=== PATIENT | female | born 1990 | race Caucasian/White ===

== ENCOUNTER 2017-11-13 11:26 | Emergency (ER) | payer OTHER ==
[~2017-11-13] VITALS: Ht 157.5 cm; Wt 54.4 kg
[2017-11-13 11:33] VITALS: Ht 157.5 cm; Wt 54.4 kg
[2017-11-13 13:05] VITALS: BP 114/73
== END 2017-11-13 13:05 | disposition home or self-care (01) ==
LOC: ED 11:26
DX: M62.830 Muscle spasm of back (principal); G43.909 Migraine, unspecified, not intractable, without status migrainosus; Z88.8 Allergy status to other drugs, medicaments and biological substances